=== PATIENT | male | born 1985 | race Hispanic/Latino ===

== ENCOUNTER 2022-12-25 10:48 | Emergency (ER) | payer OTHER ==
[~2022-12-25] VITALS: Ht 175.3 cm; Wt 86.2 kg
[2022-12-25] MEDS ORDERED: IBUPROFEN 800 MG TAB PO ONE (11:30)
[2022-12-25] MEDS ORDERED: IBUP-2071 PO (13:48)
[2022-12-25] MEDS ORDERED: ACET-2079 PO (13:48)
[2022-12-25 14:47] VITALS: BP 139/79; PULSE 78; RESP 19; O2SAT 99
== END 2022-12-25 14:45 | disposition home or self-care (01) ==
LOC: EDH 10:48
DX: S82.832A Other fracture of upper and lower end of left fibula, initial encounter for closed fracture (principal); Z79.899 Other long term (current) drug therapy; W01.0XXA Fall on same level from slipping, tripping and stumbling without subsequent striking against object, initial encounter; Y93.A3 Activity, aerobic and step exercise; Y92.89 Other specified places as the place of occurrence of the external cause; Y99.8 Other external cause status
CPT/HCPCS: 29515; 73590; 73600